=== PATIENT | female | born 1985 | race Caucasian/White ===

== ENCOUNTER 2019-12-03 11:23 | Inpatient (IN) | payer OTHER ==
--- NOTE | 2019-12-03 15:02 | CT ---
INDICATION: Right upper quadrant pain. Tubulointerstitial nephritis. CT ABDOMEN AND PELVIS WITH CONTRAST: Spiral 2.5 mm axial sections were obtained through the abdomen and pelvis before and following IV contrast (77 mL Isovue 370 at 2 mL/sec 1 second delay) with sagittal and coronal reconstructions 12/03/19 and compared with 11/27/19. Total exam DLP was 327.10 mGy-cm. Lower lung weinberg and pleural spaces visualized appeared normal. The gallbladder is absent compatible with history of its removal. There appears to be marked thickening of the wall of the gastric antrum raising question of inflammatory disease, possibly peptic ulcer disease-correlate clinically. There is suspicion of a large ulcer along the lesser curvature aspect of the stomach in the gastric antral area measuring a maximum of approximately 22 x 11 mm. Direct visualization is recommended. Otherwise, except for what appears to be scarring at the upper pole of the left kidney, the upper abdominal organs were unremarkable. An area of decreased contrast enhancement of the upper pole of the left kidney is no longer visible to suggest pyelonephritis in that area. No definite evidence of pyelonephritis is seen on the right. No evidence of obstructive uropathy was seen. Previously noted fluid filled loops of small bowel are no longer present. In the area of the right ovary, there is a cystic mass which measures approximately 28 mm. It is oval in shape and could represent a follicular cyst. A process such as an abscess-tuboovarian abscess cannot be entirely excluded. No similar mass was seen on the previous CT scan of 11/27/19. No evidence of free air or obstruction was seen. What appears to be the appendix was visualized on axial image 56 and appeared normal without evidence of appendicitis. It was also seen on images up to coronal image 49 (visualized on coronal images 49-56 series 601). IMPRESSION: 1. Gastric antral ulcer suspected, possibly more than one. The largest measures 22 x 11 mm and should have overhanging edges. The larger is noted along the lesser curvature aspect of the gastric antrum. 2. Post cholecystectomy. 3. Normal appendix. 4. Cystic mass at the right pelvis area of the right ovary, may represent a follicular cyst, although a tuboovarian abscess is difficult to entirely exclude -correlate clinically. Report was called to Katia Buck NP at 1612 hours. [facility]
[2019-12-03] MEDS ORDERED: Morphine 2 MG/ML SYRINGE IVPUSH PRN (15:15)
[2019-12-03] MEDS ORDERED: Ondansetron 4 MG Tab.DIS PO PRN (15:15)
[2019-12-03] MEDS ORDERED: Sodium Chloride 0.9% 10 ML Syringe FLUSH PRN (15:15)
[2019-12-03] MEDS ORDERED: Iopamidol 755 Mg/ML 100 ML Bottle IV ONE (15:19)
--- NOTE | 2019-12-03 15:43 | PCM.HP.2 ---
H&P History of Present Illness - General Date of Service: 12/03/19 Admit Problem/Dx: Admission Diagnosis/Problem Admission Diagnosis/Problem Gastric ulcer Source of Information: Patient, Old Records, Provider - History of Present Illness Initial Comments - Free Text/Narative: Breana is a 34 yr old female who presented today for worsening abdominal pain, nausea but no vomiting, hematemesis, black or bloody stools. She had episode in June where she went to her PCP thinking she had an ulcer, was treated with 2 weeks of Prilosec OTC, improved so medication was stopped. Then started having abdominal pain in Oct about 3-4 weeks ago, came in last week to walk-in with right flank/lower quadrant pain, had CT abdomen/pelvis with/without contrast as she had described colicky pain and comes in waves, CT showed pyelonephritis and thickening of wall of bowel but no symptoms of colitis or gastroenteritis was treated with Ciprofloxacin. Came back today for worsening epigastric pain, nausea. 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 She has NOT been taking NSAIDs excessively, did take some Tylenol and Aleve last night for headache and woke up with severe pain. She has had endometrial ablation, had vasectomy. History of Migraines and dysmenorrhea. She did have heartburn during a . - Related Data Allergies/Adverse Reactions: Allergies Allergy/AdvReac Type Severity Reaction Status Date / Time amoxicillin Allergy Vomiting Verified 11/23/14 12:58 amoxicillin trihydrate Allergy Vomiting Verified 11/23/14 12:58 [From Augmentin] metoclopramide HCl Allergy Hyperactivi Verified 11/23/14 12:58 [From Reglan] ty potassium clavulanate Allergy Vomiting Verified 11/23/14 12:58 [From Augmentin] Home Medications: Home Meds buPROPion HCl [Bupropion Xl] 300 mg PO DAILY 11/23/14 [History] Acetaminophen [Tylenol Extra Strength] 1,000 mg PO TID PRN 12/03/19 [History] Calcium Polycarbophil [Fiber Tabs] 1 tab PO DAILY 12/03/19 [History] Docusate Sodium 100 mg PO BEDTIME PRN 12/03/19 [History] FLUoxetine HCl [Fluoxetine HCl] 20 mg PO DAILY 12/03/19 [History] Fish Oil/[place]-3 Fatty Acids [Fish Oil 1,000 MG] 1 gm PO DAILY 12/03/19 [History ] L.acidoph,Paracasei, B.lactis [Probiotic] 1 cap PO DAILY 12/03/19 [History] Naproxen Sodium [Aleve] 440 mg PO BID PRN 12/03/19 [History] Rizatriptan Benzoate [Rizatriptan] 10 mg PO ASDIRECTED PRN 12/03/19 [History] Past Medical History HEENT History: Reports: Allergic Rhinitis [employer] History: Reports: Other (See Below) (Dysmenorrhea) Neurological History: Reports: Migraines Psychiatric History: Reports: ADD, Anxiety, Depression - Past Surgical History HEENT Surgical History: Reports: LASIK (PRK), Oral Surgery (wisdom teeth) GI Surgical History: Reports: Cholecystectomy Female Surgical History: Reports: Endometrial Ablation Social & Family History - Tobacco Use Smoking Status *Q: Never Smoker - Alcohol Use Alcohol Use History: Yes Alcohol Use Frequency: Socially - Recreational Drug Use Recreational Drug Use: No Drug Use in Last 12 Months: No H&P Review of Systems - Review of Systems: Review Of Systems: See Below General: Reports: No Symptoms HEENT: Reports: No Symptoms Pulmonary: Reports: No Symptoms Cardiovascular: Reports: No Symptoms Gastrointestinal: Reports: Abdominal Pain, Nausea. Denies: Black Stool, Bloody Stool, Constipation, Diarrhea, Hematemesis, Vomiting Genitourinary: Reports: No Symptoms Skin: Reports: No Symptoms Psychiatric: Reports: No Symptoms Hematologic/Lymphatic: Reports: No Symptoms Exam - Exam Exam: See Below - Exam General: Alert, Oriented, Cooperative. No: Mild Distress HEENT: PERRLA, Conjunctiva Clear, EOMI, Mucosa Moist & [place] Neck: Supple, Trachea Midline Lungs: Clear to Auscultation, Normal Respiratory Effort Cardiovascular: Regular Rate, Regular Rhythm GI/Abdominal Exam: Normal Bowel Sounds, Soft (epigastric,), No Distention, Guarding, Tender. No: Rigid, Rebound Rectal (Female) Exam: Normal Exam, Normal Rectal Tone. No: Black Stool, Bloody Stool (brown residue) Extremities: No Pedal Edema Peripheral Pulses: 2+: Radial (L), Radial (R), Posterior Tibial (L), Posterior Tibial (R), Dorsalis Pedis (L), Dorsalis Pedis (R) Skin: Warm, Dry, Intact, Other (pallor) Neurological: Cranial Nerves Intact, Normal Speech - Patient Data Lab Results Last 24 hrs: Laboratory Results - last 24 hr 12/03/19 12/03/19 Range/Units 11:23 11:23 Sodium 142 (135-145) mmol/L Potassium 3.9 (3.5-5.3) mmol/L Chloride 105 (100-110) mmol/L Carbon Dioxide 30 (21-32) mmol/L BUN 7 (7-18) mg/dL Creatinine 0.7 (0.55-1.02) mg/dL Est Cr Clr Drug Dosing TNP Estimated GFR (MDRD) > 60 (>60) BUN/Creatinine Ratio 10.0 (9-20) Glucose 85 (80-116) mg/dL Calcium 8.7 (8.6-10.2) mg/dL Total Bilirubin 0.4 (0.1-1.3) mg/dL AST 13 D (5-25) IU/L ALT 20 (12-36) U/L Alkaline Phosphatase 44 L (56-112) IU/L Total Protein 6.4 (6.0-8.0) g/dL Albumin 3.7 (3.5-5.2) g/dL Globulin 2.7 g/dL Albumin/Globulin Ratio 1.4 Urine Color Yellow (YELLOW) Urine Appearance Clear (CLEAR) Urine pH 7.0 H (5.0-6.5) Ur Specific [place] 1.010 (1.010-1.025) Urine Protein Negative (NEGATIVE) mg/dL Urine Glucose (UA) Normal (NORMAL) mg/dL Urine Ketones Negative (NEGATIVE) mg/dL Urine Occult Blood Negative (NEGATIVE) Urine Nitrite Negative (NEGATIVE) Urine Bilirubin Negative (NEGATIVE) Urine Urobilinogen Normal (NEGATIVE) mg/dL Ur Leukocyte Esterase Negative (NEGATIVE) Urine WBC 0-5 (0-5) Ur Squamous Epith Cells Occasional (NS,R,O) Urine Bacteria Occasional H (NS) CBC, FOB & H. pylori pending Result Diagrams: 12/03/19 11:23 - Problem List (1) Gastric ulcer SNOMED Code(s): 257269795 ICD Code: K25.9 - GASTRIC ULCER, UNSP ACUTE OR CHRONIC, W/O HEMOR OR PERF Status: Acute Current Visit: Yes Qualifiers: Gastric ulcer chronicity: acute Gastric ulcer complication status: without hemorrhage or perforation Qualified Code(s): K25.3 - Acute gastric ulcer without hemorrhage or perforation (2) Nausea SNOMED Code(s): 960441001 ICD Code: R11.0 - NAUSEA Status: Acute Current Visit: Yes (3) Epigastric pain SNOMED Code(s): 89044400 ICD Code: R10.13 - EPIGASTRIC PAIN Status: Acute Current Visit: Yes Problem List Initiated/Reviewed/Updated: Yes Orders Last 24hrs: Active Orders 24 hr Category Date Time Status Patient Status [ADT] Routine ADT 12/03/19 15:16 Active Ambulate [RC] PER UNIT ROUTINE Care 12/03/19 15:17 Active May Shower [RC] ASDIRECTED Care 12/03/19 15:15 Active Oxygen Therapy [RC] PRN Care 12/03/19 15:16 Active Up ad Gabriela [RC] ASDIRECTED Care 12/03/19 15:15 Active VTE/DVT Education [RC] Per Unit Routine Care 12/03/19 15:16 Active Vital Signs [RC] Q4H Care 12/03/19 15:16 Active Clear Liquid Diet [DIET] Diet 12/03/19 Dinner Active CBC W/O DIFF,HEMOGRAM [HEME] Routine Lab 12/04/19 06:00 Ordered CBC WITH AUTO DIFF [HEME] Routine Lab 12/03/19 11:34 Received H. PYLORI, IGG ABS Routine Lab 12/03/19 11:43 Received HCG QUALITATIVE,URINE [URCHEM] Routine Lab 12/03/19 11:30 Received Acetaminophen [Tylenol] Med 12/03/19 15:15 Ordered 650 mg PO Q4H PRN Iopamidol [Isovue-370 (76%)] Med 12/03/19 15:19 Once 100 ml IV ONETIME ONE Morphine Med 12/03/19 15:15 Ordered 2 mg IVPUSH Q2H PRN Ondansetron [Zofran ODT] Med 12/03/19 15:15 Ordered 4 mg PO Q6H PRN Pantoprazole [ProTONIX IV] Med 12/03/19 15:30 Ordered 40 mg IVPUSH Q12H Sodium Chloride 0.9% [Saline Flush] Med 12/03/19 15:15 Ordered 10 ml FLUSH ASDIRECTED PRN Sucralfate [Carafate] Med 12/03/19 17:30 Ordered 1 gm PO QIDACANDBED Peripheral IV Insertion Adult [OM.PC] Routine Oth 12/03/19 15:15 Ordered Saline Lock Insert [OM.PC] Routine Oth 12/03/19 15:15 Ordered Resuscitation Status Routine Resus Stat 12/03/19 15:15 Ordered Medication Orders Acetaminophen (Tylenol) 650 mg PO Q4H PRN PRN Reason: Pain (Mild 1-3)/fever Iopamidol (Isovue-370 (76%)) 100 ml IV ONETIME ONE Stop: 12/03/19 15:20 Morphine Sulfate (Morphine) 2 mg IVPUSH Q2H PRN PRN Reason: Pain (severe 7-10) Ondansetron HCl (Zofran Odt) 4 mg PO Q6H PRN PRN Reason: nausea, able to take PO Pantoprazole Sodium (Protonix Iv) 40 mg IVPUSH Q12H EDWIN Sodium Chloride (Saline Flush) 10 ml FLUSH ASDIRECTED PRN PRN Reason: Keep Vein Open Sucralfate (Carafate) 1 gm PO QIDACANDBED EDWIN Assessment/Plan Comment:: 1. Admit for PPI, Carafate, Pain control, monitoring for bleeding. 2. Clear liquids as she has not vomited, no symptoms of bleed. NS at 125 ml/hr. 3. Protonix 40 mg IV BID, Carafate 1 g po ac and bedtime. Spoke with Dr Fowler, he did not recommend an EGD right now but would revisit if she is not improving in 48 hours. If she would be actively bleeding then she would have to be transferred as he would not be able to manage that here. If symptoms are controlled medically then she would need a scope in a few weeks. H. pylori pending. FOB pending. 4. Morphine 2 mg IV as needed pain, Hydrocodone/APAP 5/325 mg q4h as needed, Tylenol 650 mg q4h as needed. No NSAIDS or Fish oil. 5. FULL CODE - Mortality Measure Prognosis:: Good
[2019-12-03] MEDS ORDERED: Acetaminophen/HYDROcodone 325-5 MG Tab PO PRN (16:17)
[2019-12-03] MEDS: Sodium Chloride 0.9% 1,000 ML IV SCH (16:34)
[2019-12-03] MEDS: Pantoprazole 40 MG Vial IVPUSH SCH (16:34)
[2019-12-03] MEDS: Sucralfate 1 GM Tab PO SCH ×2 (16:39→21:14)
[2019-12-04] MEDS: Sodium Chloride 0.9% 1,000 ML IV SCH ×3 (00:35→08:35)
[2019-12-04] MEDS: Pantoprazole 40 MG Vial IVPUSH SCH ×2 (04:08→16:15)
[2019-12-04] MEDS: Sucralfate 1 GM Tab PO SCH ×4 (07:38→20:11)
[2019-12-04] MEDS: Acetaminophen 325 MG Tab PO PRN ×2 (07:41→13:14)
[2019-12-04] MEDS ORDERED: Sodium Chloride 0.9% 1,000 ML IV SCH ×2 (08:35→10:25)
[2019-12-04] MEDS ORDERED: SUMAtriptan 50 MG Tab PO PRN (11:00)
[2019-12-04] MEDS: buPROPion 150 MG Tab.ER PO SCH (11:03)
[2019-12-04] MEDS: FLUoxetine 20 MG Cap PO SCH (11:03)
--- NOTE | 2019-12-04 15:16 | PCM.PN ---
- General Info Date of Service: 12/04/19 Admission Dx/Problem (Free Text): Patient took Tylenol this morning and had some oatmeal and toast, initially stomach felt better but after she ate pain worsened. FOB was negative yesterday. Hgb 13 yesterday, 11.8 today. NO fevers or chills. No vomiting. - Patient Data Vitals - Most Recent: Last Vital Signs Temp 98.0 F 12/04/19 12:00 Pulse 81 12/04/19 12:00 Resp 14 12/04/19 12:00 BP 110/69 12/04/19 12:00 Pulse Ox 100 12/04/19 12:00 Weight - Most Recent: 126 lb 3.2 oz I&O - Last 24 Hours: Intake & Output 12/04/19 12/04/19 12/04/19 06:59 14:59 22:59 Intake Total 1247 110 Balance 1247 110 Lab Results Last 24 Hours: Laboratory Results - last 24 hr 12/03/19 12/03/19 12/04/19 Range/Units 11:30 11:34 06:35 WBC 10.3 5.1 (4.5-12.0) X10-3/uL RBC 4.43 3.94 (3.23-5.20) x10(6)uL Hgb 13.2 11.8 (11.5-15.5) g/dL Hct 39.4 34.8 (30.0-51.3) % MCV 89.0 88.1 (80-96) fL MCH 29.8 29.8 (27.7-33.6) pg MCHC 33.4 33.8 (32.2-35.4) g/dL RDW 13.3 13.2 (11.5-15.5) % Plt Count 258 205 (125-369) X10(3)uL MPV 8.7 (7.4-10.4) fL Neut % (Auto) 75.0 (46-82) % Lymph % (Auto) 11.8 L (13-37) % [place] % (Auto) 5.8 (4-12) % Eos % (Auto) 7 H (1.0-5.0) % Baso % (Auto) 1 (0-2) % Neut # (Auto) 7.7 (1.6-8.3) # Lymph # (Auto) 1.2 (0.6-5.0) # [place] # (Auto) 0.6 (0.0-1.3) # Eos # (Auto) 0.7 (0.0-0.8) # Baso # (Auto) 0.1 (0.0-0.2) # Urine HCG, Qual Negative (NEGATIVE) Ezra Results Last 24 Hours: Microbiology 12/03/19 16:00 Stool Occult Blood (EZRA) - Final Stool / Feces NEGATIVE OCCULT BLOOD REFERENCE RANGE: NEGATIVE Med Orders - Current: Current Medications Acetaminophen (Tylenol) 650 mg PO Q4H PRN PRN Reason: Pain (Mild 1-3)/fever Last Admin: 12/04/19 13:14 Dose: 650 mg Hydrocodone Bitart/Acetaminophen ([place] 325-5 Mg) 1 tab PO Q4H PRN PRN Reason: Pain (moderate 4-6) Bupropion HCl (Wellbutrin Xl) 300 mg PO DAILY [facility] Last Admin: 12/04/19 11:03 Dose: 300 mg Fluoxetine HCl (Prozac) 20 mg PO DAILY [facility] Last Admin: 12/04/19 11:03 Dose: 20 mg Sodium Chloride (Normal Saline) 1,000 mls @ 75 mls/hr IV ASDIRECTED [facility] Morphine Sulfate (Morphine) 2 mg IVPUSH Q2H PRN PRN Reason: Pain (severe 7-10) Ondansetron HCl (Zofran Odt) 4 mg PO Q6H PRN PRN Reason: nausea, able to take PO Pantoprazole Sodium (Protonix Iv) 40 mg IVPUSH Q12H [facility] Last Admin: 12/04/19 04:08 Dose: 40 mg Sodium Chloride (Saline Flush) 10 ml FLUSH ASDIRECTED PRN PRN Reason: Keep Vein Open Sucralfate (Carafate) 1 gm PO QIDACANDBED [facility] Last Admin: 12/04/19 11:04 Dose: 1 gm Sumatriptan Succinate (Imitrex) 100 mg PO ASDIRECTED PRN PRN Reason: MIGRAINE Discontinued Medications Sodium Chloride (Normal Saline) 1,000 mls @ 125 mls/hr IV ASDIRECTED [facility] Last Admin: 12/04/19 07:42 Dose: 125 mls/hr Iopamidol (Isovue-370 (76%)) 100 ml IV ONETIME ONE Stop: 12/03/19 15:20 Last Admin: 12/03/19 15:49 Dose: 77 ml - Exam General: Alert, Oriented, Cooperative, No Acute Distress Lungs: Clear to Auscultation, Normal Respiratory Effort Cardiovascular: Regular Rate, Regular Rhythm GI/Abdominal Exam: Normal Bowel Sounds, Soft, No Distention, Guarding, Tender ( Epigastric). No: Rigid, Rebound Extremities: No Pedal Edema Sepsis Event Note - Evaluation Sepsis Screening Result: No Definite Risk - Focused Exam Vital Signs: Vital Signs Temp Pulse Resp BP Pulse Ox 12/04/19 12:00 98.0 F 81 14 110/69 100 12/04/19 08:00 99.2 F 77 14 113/71 100 12/04/19 04:00 16 Date Exam was Performed: 12/04/19 Time Exam was Performed: 15:13 - Problem List & Annotations (1) Gastric ulcer SNOMED Code(s): 938778143 Code(s): K25.9 - GASTRIC ULCER, UNSP ACUTE OR CHRONIC, W/O HEMOR OR PERF Status: Acute Current Visit: Yes Qualifiers: Gastric ulcer chronicity: acute Gastric ulcer complication status: without hemorrhage or perforation Qualified Code(s): K25.3 - Acute gastric ulcer without hemorrhage or perforation (2) Nausea SNOMED Code(s): 645350066 Code(s): R11.0 - NAUSEA Status: Acute Current Visit: Yes (3) Epigastric pain SNOMED Code(s): 85430442 Code(s): R10.13 - EPIGASTRIC PAIN Status: Acute Current Visit: Yes - Problem List Review Problem List Initiated/Reviewed/Updated: Yes - My Orders Last 24 Hours: My Active Orders 12/03/19 15:15 May Shower [RC] ASDIRECTED Up ad Gabriela [RC] ASDIRECTED Acetaminophen [Tylenol] 650 mg PO Q4H PRN Morphine 2 mg IVPUSH Q2H PRN Ondansetron [Zofran ODT] 4 mg PO Q6H PRN Sodium Chloride 0.9% [Saline Flush] 10 ml FLUSH ASDIRECTED PRN Peripheral IV Insertion Adult [OM.PC] Routine Saline Lock Insert [OM.PC] Routine Resuscitation Status Routine 12/03/19 15:16 Patient Status [ADT] Routine Oxygen Therapy [RC] PRN VTE/DVT Education [RC] Per Unit Routine Vital Signs [RC] 08,12,16,20,00,04 12/03/19 15:17 Ambulate [RC] PER UNIT ROUTINE 12/03/19 15:30 Pantoprazole [ProTONIX IV] 40 mg IVPUSH Q12H 12/03/19 16:17 Acetaminophen/HYDROcodone [[place] 325-5 MG] 1 tab PO Q4H PRN 12/03/19 17:30 Sucralfate [Carafate] 1 gm PO QIDACANDBED 12/04/19 08:35 Sodium Chloride 0.9% [Normal Saline] 1,000 ml IV ASDIRECTED 12/04/19 10:45 FLUoxetine [PROzac] 20 mg PO DAILY 12/04/19 11:00 SUMAtriptan [Imitrex] 100 mg PO ASDIRECTED PRN buPROPion [Wellbutrin XL] 300 mg PO DAILY 12/04/19 Lunch Low Fiber Diet [DIET] - Plan Plan:: 1. Protonix 40 mg IV bid, Carafate 1 g ac & hs. 2. Low fiber diet. NS at 75 ml/hr. 3. H. pylori pending. 4. Morphine 2 mg IV as needed pain, Hydrocodone/APAP 5/325 mg q4h as needed, Tylenol 650 mg q4h as needed. No NSAIDS or Fish oil.
[2019-12-05] MEDS: Pantoprazole 40 MG Vial IVPUSH SCH (03:20)
[2019-12-05] MEDS: Sucralfate 1 GM Tab PO SCH (06:43)
--- NOTE | 2019-12-05 07:44 | PCM.PN ---
- General Info Date of Service: 12/05/19 Admission Dx/Problem (Free Text): Patient says she feels much better. Having very little pain which is epigastric. She says she knows what foods 7. She denies nausea, vomiting, diarrhea or constipation. No blood in her stools. - Patient Data Vitals - Most Recent: Last Vital Signs Temp 99.0 F 12/05/19 03:38 Pulse 70 12/05/19 03:38 Resp 16 12/05/19 03:38 BP 108/67 12/05/19 03:38 Pulse Ox 99 12/05/19 03:38 Weight - Most Recent: 126 lb 3.2 oz I&O - Last 24 Hours: Intake & Output 12/04/19 12/05/19 12/05/19 22:59 06:59 14:59 Intake Total 942 Balance 942 Med Orders - Current: Current Medications Acetaminophen (Tylenol) 650 mg PO Q4H PRN PRN Reason: Pain (Mild 1-3)/fever Last Admin: 12/04/19 13:14 Dose: 650 mg Hydrocodone Bitart/Acetaminophen ([place] 325-5 Mg) 1 tab PO Q4H PRN PRN Reason: Pain (moderate 4-6) Bupropion HCl (Wellbutrin Xl) 300 mg PO DAILY [facility] Last Admin: 12/04/19 11:03 Dose: 300 mg Fluoxetine HCl (Prozac) 20 mg PO DAILY [facility] Last Admin: 12/04/19 11:03 Dose: 20 mg Sodium Chloride (Normal Saline) 1,000 mls @ 75 mls/hr IV ASDIRECTED [facility] Last Admin: 12/04/19 21:47 Dose: 75 mls/hr Morphine Sulfate (Morphine) 2 mg IVPUSH Q2H PRN PRN Reason: Pain (severe 7-10) Ondansetron HCl (Zofran Odt) 4 mg PO Q6H PRN PRN Reason: nausea, able to take PO Pantoprazole Sodium (Protonix Iv) 40 mg IVPUSH Q12H [facility] Last Admin: 12/05/19 03:20 Dose: 40 mg Sodium Chloride (Saline Flush) 10 ml FLUSH ASDIRECTED PRN PRN Reason: Keep Vein Open Sucralfate (Carafate) 1 gm PO QIDACANDBED [facility] Last Admin: 12/05/19 06:43 Dose: 1 gm Sumatriptan Succinate (Imitrex) 100 mg PO ASDIRECTED PRN PRN Reason: MIGRAINE Discontinued Medications Sodium Chloride (Normal Saline) 1,000 mls @ 125 mls/hr IV ASDIRECTED [facility] Last Admin: 12/04/19 07:42 Dose: 125 mls/hr Iopamidol (Isovue-370 (76%)) 100 ml IV ONETIME ONE Stop: 12/03/19 15:20 Last Admin: 12/03/19 15:49 Dose: 77 ml - Exam Lungs: Normal Respiratory Effort GI/Abdominal Exam: Normal Bowel Sounds, Soft, Non-Tender Sepsis Event Note - Evaluation Sepsis Screening Result: No Definite Risk - Focused Exam Vital Signs: Vital Signs Temp Pulse Resp BP Pulse Ox 12/05/19 03:38 99.0 F 70 16 108/67 99 12/04/19 23:48 98.6 F 74 16 110/69 99 Date Exam was Performed: 12/05/19 Time Exam was Performed: 07:42 - Problem List & Annotations (1) Gastric ulcer SNOMED Code(s): 792450697 Code(s): K25.9 - GASTRIC ULCER, UNSP ACUTE OR CHRONIC, W/O HEMOR OR PERF Status: Acute Current Visit: Yes Qualifiers: Gastric ulcer chronicity: acute Gastric ulcer complication status: without hemorrhage or perforation Qualified Code(s): K25.3 - Acute gastric ulcer without hemorrhage or perforation - Problem List Review Problem List Initiated/Reviewed/Updated: Yes - My Orders Last 24 Hours: My Active Orders 12/05/19 07:41 Ready for Discharge [RC] PER UNIT ROUTINE - Assessment Assessment:: 1. Discharge to home on Protonix and Carafate. She'll follow-up with her nurse practitioner in 1 week at that time see if the H. pylori is positive. Recheck with Dr. Rivera is in 6 weeks. - Plan Plan:: 1. Protonix 40 mg IV bid, Carafate 1 g ac & hs. 2. Low fiber diet. NS at 75 ml/hr. 3. H. pylori pending. 4. Morphine 2 mg IV as needed pain, Hydrocodone/APAP 5/325 mg q4h as needed, Tylenol 650 mg q4h as needed. No NSAIDS or Fish oil.
--- NOTE | 2019-12-05 07:45 | PCM.DCSUM1 ---
Discharge Summary - Hospital Course Free Text/Narrative:: Hospital course-patient was admitted on IV morphine, Carafate and IV Protonix. CT scan showed antral ulcer. Surgery was consult that and they didn't take anything to be done unless she starts having GI bleeding. Guaiac was negative. Patient stated 2 days and finally her pain was under control. She was off any narcotics. She denied any bleeding in her stool. No nausea, vomiting. She was able to eat certain foods without any difficulty. Antonio pain was with eating. H. pylori was done and is pending. Brief History: Breana is a 34 yr old female who presented today for worsening abdominal pain, nausea but no vomiting, hematemesis, black or bloody stools. She had episode in June where she went to her PCP thinking she had an ulcer, was treated with 2 weeks of Prilosec OTC, improved so medication was stopped. Then started having abdominal pain in Oct about 3-4 weeks ago, came in last week to walk-in with right flank/lower quadrant pain, had CT abdomen/pelvis with /without contrast as she had described colicky pain and comes in waves, CT showed pyelonephritis and thickening of wall of bowel but no symptoms of colitis or gastroenteritis was treated with Ciprofloxacin. Came back today for worsening epigastric pain, nausea. 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 She has NOT been taking NSAIDs excessively, did take some Tylenol and Aleve last night for headache and woke up with severe pain. She has had endometrial ablation, had vasectomy. History of Migraines and dysmenorrhea. She did have heartburn during a . Diagnosis: Stroke: No - Discharge Data Discharge Date: 12/05/19 Discharge Disposition: Home, Self-Care 01 Condition: Good - Referral to Home Health Primary Care Physician: Tessa Ballard NP - Discharge Diagnosis/Problem(s) (1) Gastric ulcer SNOMED Code(s): 501384092 ICD Code: K25.9 - GASTRIC ULCER, UNSP ACUTE OR CHRONIC, W/O HEMOR OR PERF Status: Acute Current Visit: Yes Qualifiers: Gastric ulcer chronicity: acute Gastric ulcer complication status: without hemorrhage or perforation Qualified Code(s): K25.3 - Acute gastric ulcer without hemorrhage or perforation - Patient Instructions Diet: GI Soft/Low Residue/Low Fiber Activity: As Tolerated Driving: May Drive Today Showering/Bathing: May Shower Notify Provider of: Increased Pain, Nausea and/or Vomiting Other/Special Instructions: Follow up with Tessa Ballard in 1 week. Follow up with Dr Rivera in 6 weeks. - Discharge Plan *PRESCRIPTION DRUG MONITORING PROGRAM REVIEWED*: No *COPY OF PRESCRIPTION DRUG MONITORING REPORT IN PATIENT ZOFIA: No Prescriptions/Med Rec: Pantoprazole Sodium [Protonix] 40 mg PO BID 60 Days #120 tablet. Sucralfate 1 gm PO QIDACANDBED 60 Days #240 tablet Home Medications: Home Meds buPROPion HCl [Bupropion Xl] 300 mg PO DAILY 11/23/14 [History] Calcium Polycarbophil [Fiber Tabs] 1 tab PO DAILY 12/03/19 [History] Docusate Sodium 100 mg PO BEDTIME PRN 12/03/19 [History] FLUoxetine HCl [Fluoxetine HCl] 20 mg PO DAILY 12/03/19 [History] L.acidoph,Paracasei, B.lactis [Probiotic] 1 cap PO DAILY 12/03/19 [History] Rizatriptan Benzoate [Rizatriptan] 10 mg PO ASDIRECTED PRN 12/03/19 [History] Acetaminophen [Tylenol] 650 mg PO Q4H PRN tablet 12/04/19 [Rx] Pantoprazole Sodium [Protonix] 40 mg PO BID 60 Days #120 tablet. 12/04/19 [Rx] Sucralfate 1 gm PO QIDACANDBED 60 Days #240 tablet 12/04/19 [Rx] - Discharge Summary/Plan Comment DC Time >30 min.: No - Patient Data Vitals - Most Recent: Last Vital Signs Temp 99.0 F 12/05/19 03:38 Pulse 70 12/05/19 03:38 Resp 16 12/05/19 03:38 BP 108/67 12/05/19 03:38 Pulse Ox 99 12/05/19 03:38 Weight - Most Recent: 126 lb 3.2 oz I&O - Last 24 hours: Intake & Output 12/04/19 12/05/19 12/05/19 22:59 06:59 14:59 Intake Total 942 Balance 942 Med Orders - Current: Current Medications Acetaminophen (Tylenol) 650 mg PO Q4H PRN PRN Reason: Pain (Mild 1-3)/fever Last Admin: 12/04/19 13:14 Dose: 650 mg Hydrocodone Bitart/Acetaminophen ([place] 325-5 Mg) 1 tab PO Q4H PRN PRN Reason: Pain (moderate 4-6) Bupropion HCl (Wellbutrin Xl) 300 mg PO DAILY [facility] Last Admin: 12/04/19 11:03 Dose: 300 mg Fluoxetine HCl (Prozac) 20 mg PO DAILY [facility] Last Admin: 12/04/19 11:03 Dose: 20 mg Sodium Chloride (Normal Saline) 1,000 mls @ 75 mls/hr IV ASDIRECTED [facility] Last Admin: 12/04/19 21:47 Dose: 75 mls/hr Morphine Sulfate (Morphine) 2 mg IVPUSH Q2H PRN PRN Reason: Pain (severe 7-10) Ondansetron HCl (Zofran Odt) 4 mg PO Q6H PRN PRN Reason: nausea, able to take PO Pantoprazole Sodium (Protonix Iv) 40 mg IVPUSH Q12H [facility] Last Admin: 12/05/19 03:20 Dose: 40 mg Sodium Chloride (Saline Flush) 10 ml FLUSH ASDIRECTED PRN PRN Reason: Keep Vein Open Sucralfate (Carafate) 1 gm PO QIDACANDBED [facility] Last Admin: 12/05/19 06:43 Dose: 1 gm Sumatriptan Succinate (Imitrex) 100 mg PO ASDIRECTED PRN PRN Reason: MIGRAINE Discontinued Medications Sodium Chloride (Normal Saline) 1,000 mls @ 125 mls/hr IV ASDIRECTED [facility] Last Admin: 12/04/19 07:42 Dose: 125 mls/hr Iopamidol (Isovue-370 (76%)) 100 ml IV ONETIME ONE Stop: 12/03/19 15:20 Last Admin: 12/03/19 15:49 Dose: 77 ml
[2019-12-05] MEDS: FLUoxetine 20 MG Cap PO SCH (08:58)
[2019-12-05] MEDS: buPROPion 150 MG Tab.ER PO SCH (08:58)
== END 2019-12-05 09:00 | disposition home or self-care (01) | DRG 384 ==
LOC: FB.CLBR 11:23 → FB.MS 14:42
PROVIDERS: ADMIT Nurse Practitioner Family; ATTEND Family Medicine
DX: K25.3 Acute gastric ulcer without hemorrhage or perforation (principal); G43.909 Migraine, unspecified, not intractable, without status migrainosus; F32.9 Major depressive disorder, single episode, unspecified; F41.9 Anxiety disorder, unspecified; Z90.49 Acquired absence of other specified parts of digestive tract; Z98.890 Other specified postprocedural states; Z79.899 Other long term (current) drug therapy; Z88.8 Allergy status to other drugs, medicaments and biological substances; Z88.0 Allergy status to penicillin
CPT/HCPCS: 36415; 74177; 80053; 81001; 81025; 82272; 85025; 85027; 86677; A9270-GY; C9113; J7030; Q9967

== ENCOUNTER 2020-03-03 07:15 | Day surgery (SDC) | payer OTHER ==
[~2020-03-03 07:15] MED LIST: Lactated Ringers 1,000 ML IV SCH; Sodium Chloride 0.9% 10 ML Syringe FLUSH PRN
[2020-03-03] MEDS ORDERED: Lidocaine 2% 5 ML SDV INJECT ONE (07:16)
[2020-03-03] MEDS ORDERED: Propofol 200 MG/20 ML SDV IV ONE (07:16)
--- NOTE | 2020-03-03 09:07 | PCM.OPNOTE ---
- General Post-Op/Procedure Note Date of Surgery/Procedure: 03/03/20 Operative Procedure(s): egd with bx Findings: gastritis esophagitis ? early Schatzki's ring Pre Op Diagnosis: hx of gastric ulcer Post-Op Diagnosis: gastritis. esophagitis. ? early Schatzki's ring Anesthesia Technique: MAC Primary Surgeon: Deangelo Rivera Anesthesia Provider: Minh Dunbar Pathology: stomach and esophagus Complications: None Condition: Good Free Text/Narrative:: see dictation
--- NOTE | 2020-03-03 09:08 | PREOP ---
ADMISSION DATE: 03/03/2020 CHIEF COMPLAINT: Abdominal pain. HISTORY OF PRESENT ILLNESS: This 34-year-old white female admitted in November for epigastric abdominal pain, found to have a gastric ulcer on CT scan. No EGD was performed. Has been on Protonix and Carafate and was due for a followup EGD. However, due to the COVID crisis, we pushed this back. However, she has had an exacerbation of her symptoms and now presents for EGD. H pylori was negative during her hospitalization. MEDICATIONS: Include: 1. Wellbutrin 300 mg daily. 2. Protonix 40 mg b.i.d. 3. Carafate 1 g daily. 4. Prozac 20 mg once a day. 5. Maxalt 10 mg on a p.r.n. basis for headache. 6. Probiotic 1 time per day. ALLERGIES: She is allergic to penicillin, Reglan. She has seasonal allergies including congestion, sneezing, and watering eyes. PAST MEDICAL HISTORY: Significant for depression, migraine, ADD, dysmenorrhea, tear film insufficiency, anxiety disorder, depression, and heartburn. PAST SURGICAL HISTORY: Significant for cholecystectomy, LASIK surgery, hysteroscopy and Endo ablation, diagnostic laparoscopy, and wisdom tooth extraction. REVIEW OF SYSTEMS: CONSTITUTIONAL: Significant for 10-pound weight loss. HEENT: Negative. RESPIRATORY: Negative. CARDIOVASCULAR: Negative. GI: Positive for abdominal pain and nausea. GENITOURINARY: Noted some frequency. MUSCULOSKELETAL: Negative. SKIN: Negative. NEUROLOGIC: Negative. PHYSICAL EXAMINATION: GENERAL: This is a well-developed, well-nourished white female, appearing in no acute distress. VITAL SIGNS: Stable. She is afebrile. HEENT: Grossly within normal limits. LUNGS: Clear to auscultation. HEART: Regular rate and rhythm. ABDOMEN: Soft. No marked tenderness noted. ASSESSMENT: History of gastric ulcer with exacerbation of abdominal pain. PLAN: EGD. Procedure and risks explained to the patient to include bleeding, perforation, and infection. The patient expresses understanding, and asked us to proceed. /[id number] /MODL
--- NOTE | 2020-03-03 11:07 | OR ---
DATE OF OPERATION: 03/03/2020 SURGEON: Deangelo Rivera MD PROCEDURE PERFORMED: Upper endoscopy with cold forceps biopsy. PREOPERATIVE DIAGNOSIS: Personal history of gastric ulcer. POSTOPERATIVE DIAGNOSIS: Gastritis and esophagitis. INDICATIONS FOR PROCEDURE: This is a 34-year-old white female who was admitted to the hospital in November earlier this year for epigastric abdominal pain. The patient underwent a workup which did not include an upper endoscopy, was noted on CT scan to have findings consistent with an ulcer in her stomach. She was placed very appropriately on a proton pump inhibitor as well as Carafate and discharged. She had done quite well. She presented for followup scope. At approximately the 4-week point, we pushed this out and recommended 8-week point, at which point, the COVID-19 crisis intervened, and as she was feeling better, we elected to do a followup scope when this situation had calmed down. Recently, she has noted an exacerbation of her abdominal pain in the right upper quadrant as well as some epigastric discomfort despite being on a proton pump inhibitor and Carafate, and at this point, she was offered and accepted an EGD. DESCRIPTION OF PROCEDURE: After an excellent IV sedation was administered, the bite block was inserted. Flexible endoscope was passed without difficulty down the patient's esophagus into the stomach. Stomach was insufflated, scope passed through the pylorus, second portion of the duodenum and then slowly withdrawn. The following findings were noted. The duodenum was unremarkable. Stomach was notable for some what appeared to be an area of healed ulceration in the antrum. There was some residual inflammation, and multiple biopsies were taken in this area as well. GE junction measured approximately 40 cm. There was some mild erythema noted in the distal esophagus and biopsies were taken of this area as well. No evidence of a hiatal hernia was noted, possibly early formation of a Schatzki ring was noted as well. The remainder of the esophageal exam was unremarkable. The patient was taken to Recovery in good condition. We will be sending the results by letter. /[id number] /MODL
== END 2020-03-03 09:46 | disposition home or self-care (01) ==
LOC: FB.SDS 07:15
PROVIDERS: ATTEND Surgery
DX: K29.50 Unspecified chronic gastritis without bleeding (principal); K20.9 Esophagitis, unspecified; F41.9 Anxiety disorder, unspecified; F32.9 Major depressive disorder, single episode, unspecified; Z88.0 Allergy status to penicillin; Z88.8 Allergy status to other drugs, medicaments and biological substances; Z79.899 Other long term (current) drug therapy; Z87.11 Personal history of peptic ulcer disease
CPT/HCPCS: 00731; 43239; 81025; J2001; J2704; J7120; 88305; 88313; 88342

== ENCOUNTER 2020-12-13 06:29 | Day surgery (SDC) | payer OTHER ==
[2020-12-13] MEDS ORDERED: Propofol 200 MG/20 ML SDV IV ONE (06:30)
[2020-12-13] MEDS ORDERED: Lidocaine 2% 5 ML SDV INJECT ONE (06:30)
[2020-12-13] MEDS ORDERED: Glycopyrrolate 0.2 MG/ML 5 ML MDV IV ONE (06:30)
[2020-12-13] MEDS ORDERED: Ondansetron 4 MG/2 ML SDV IVPUSH ONE (06:30)
[2020-12-13] MEDS ORDERED: Sodium Chloride 0.9% 10 ML Syringe FLUSH PRN (06:45)
[2020-12-13] MEDS ORDERED: Lactated Ringers 1,000 ML IV SCH (06:45)
--- NOTE | 2020-12-13 08:36 | PCM.OPNOTE ---
- General Post-Op/Procedure Note Date of Surgery/Procedure: 12/13/20 Operative Procedure(s): egd with cold forceps biopsy Findings: healing antral ulcer normal appearing duodenum and esophagus normal colon Pre Op Diagnosis: hx of gastropathy and gastric ulcer. hx of abd pain and obstipation. family hx of Crohns Post-Op Diagnosis: healing antral ulcer. normal appearing duodenum and esophagus. normal colon Anesthesia Technique: MAC Primary Surgeon: Deangelo Rivera Anesthesia Provider: Minh Dunbar Pathology: duodenum ulcer edge Complications: None Condition: Good Free Text/Narrative:: see dictation [id number]
--- NOTE | 2020-12-13 09:59 | OR ---
DATE OF OPERATION: 12/13/2020 SURGEON: Deangelo Rivera MD PROCEDURE PERFORMED: Esophagogastroduodenoscopy and colonoscopy. The esophagogastroduodenoscopy was with cold forceps. PREOPERATIVE DIAGNOSES: History of epigastric abdominal pain, history of gastropathy and gastric ulcer, apparent history of multiple food allergies as well as obstipation. POSTOPERATIVE DIAGNOSES: Antral ulcer healing, normal-appearing duodenum, normal-appearing colon. INDICATIONS FOR PROCEDURE: Ms. Cerrato is a 35-year-old white female who has a history of gastric ulcer in the past as well as gastropathy. This summer, she noted some abdominal discomfort, apparently went to an alternative medicine clinic in the [facility], and on the basis of a lab test, was told that she had multiple food allergies. She was placed on a diet that avoided her allergies, which included allergies to all grains as well as rice. She was told to stop her Protonix. She was placed on vitamin D as well. Her pain has persisted, located in the epigastrium. She has also noted a change in her bowel habits and alternates between constipation and diarrhea. As noted, she has a known history of gastric ulcer, which has been healed in the past on her last endoscopy, and her last biopsies were consistent with gastropathy as well as opposed to gastritis. On the basis of her complaints, she was offered and accepted an EGD as well as colonoscopy. DESCRIPTION OF OPERATION: After an excellent IV sedation was administered, the bite block was inserted, and the flexible endoscope was passed down the patient's esophagus into the stomach. The stomach was insufflated. Scope passed through the pylorus, second portion of the duodenum, and slowly withdrawn. The following findings were noted. Duodenum was essentially unremarkable. However, on the basis of her lab findings, we did do some biopsies to rule out celiac disease. Stomach, in the area of the antrum, there was an area that appeared to be a healing or healed gastric ulcer. There was no noted ulceration bed, but it did appear that she had an ulcer that apparently has filled then. Biopsies were taken circumferentially around this. Remainder of the gastric exam was unremarkable. The esophagus was unremarkable. Stomach was deflated and scope was removed. Our attention was then turned to the patient's colon. Digital rectal exam was performed. No marked abnormality was noted. Flexible colonoscope was inserted and advanced to the cecum without difficulty. Prep was excellent. The following findings were noted. Attempts to intubate the terminal ileum were not successful. The ascending colon was unremarkable. The transverse colon was unremarkable. The descending colon was unremarkable. Sigmoid and rectum were unremarkable. The patient tolerated the procedure well, was taken to recovery room. Results will be sent to her via letter. /[id number] /MODL
== END 2020-12-14 10:15 | disposition home or self-care (01) ==
LOC: FB.SDS 06:29
PROVIDERS: ATTEND Surgery
DX: K59.00 Constipation, unspecified (principal); K29.50 Unspecified chronic gastritis without bleeding; K25.9 Gastric ulcer, unspecified as acute or chronic, without hemorrhage or perforation; Z79.899 Other long term (current) drug therapy; Z88.1 Allergy status to other antibiotic agents; Z88.8 Allergy status to other drugs, medicaments and biological substances; Z90.49 Acquired absence of other specified parts of digestive tract; Z98.890 Other specified postprocedural states; Z91.018 Allergy to other foods
CPT/HCPCS: 00813-QZ; 88305; 88342; J2001; J2405; J2704; J3490; J7120